=== PATIENT | female | born 1990 | race Caucasian/White ===

== ENCOUNTER 2024-03-05 12:56 | Emergency (ER) | payer OTHER ==
[2024-03-05 13:27] VITALS: TEMP 98.9
[2024-03-05] MEDS ORDERED: Zofran 4 MG/2 ML VIAL ONE (13:40)
[2024-03-05 13:41] LABS: Absolute Neutrophil Ct (ANC) 2.72 x10^3/uL (1.56-6.13); BASOPHIL % 0.6 % (0.1-1.2); Basophil (Absolute #) 0.03 x10^3/uL (0.01-0.08); Eosinophil % 0.8 % (0.7-5.8); Eosinophil (Absolute #) 0.04 x10^3/uL (0.04-0.36); Hematocrit 36.5 % (34.1-44.9); Hemoglobin 11.6 g/dL (11.2-15.7); IMMATURE GRAN # 0.01 x10^3u/L (0.001-0.031); IMMATURE GRAN % 0.2 % (0.001-0.429); Lymphocyte (Absolute #) 1.63 x10^3/uL (1.18-3.74); Lymphocytes % 34.1 % (19.3-51.7); Mean Cell Volume 90.8 fL (79.4-94.8); Mean Corpuscular Hemoglobin 28.9 pg (25.6-32.2); Mean Corpuscular Hgb Concent. 31.8 g/dL (32.2-35.5); Mean Platelet Volume 10.1 fL (9.4-12.3); Monocyte (Absolute #) 0.35 x10^3/uL (0.24-0.86); Monocytes % 7.3 % (4.7-12.5); Platelet Count 292 x10^3/uL (182-369); Red Blood Count 4.02 x10^6/uL (3.93-5.22); Red Cell Distribution Width 13.3 % (11.7-14.4); White Blood Count 4.8 x10^3/uL (3.98-10.04)
[2024-03-05] MEDS ORDERED: Sodium Chloride 0.9% 1000 ML 1,000 ML ONE (13:41)
[2024-03-05] MEDS ORDERED: TORAdol 30 mg Injection ONE (13:41)
[2024-03-05] MEDS: Sodium Chloride 0.9% 1000 ML 1,000 ML IV STA (13:43)
--- NOTE | 2024-03-05 13:43 | ERPHSYRPT ---
- History of Present Illness Time Seen by Provider: 03/05/24 13:25 Source: patient Exam Limitations: no limitations Patient Subjective Stated Complaint: Pt c/o of lower abdominal pain for the past 2 days Triage Nursing Assessment: Pt brought self to the ER, vitals wnl, rates pain as 10/10, pulses normal, skin n/w/d, having spasms when she urinates and when she has a bowel movement, states that it gets so tight that it is like a charley horse, pt had a UTI last month, no difficulty breathing, walked into the ER with a stable gait, doesn't appear to be in any distress Physician History: Patient here with lower abdominal pain. Patient rates as 10 out of 10. States that having bladder spasm when she urinates. Also, hurts when she tries to have a bowel movement. She has tried Gas-X, Protonix, Tylenol at home. No falls or trauma. States it feels like a tight charley horse. She states that she was treated for a UTI last month. No difficulty breathing, walking to the emergency department, does not appear to be in any acute distress, nontoxic as I walk into the room. Patient states that she does have a history of bladder prolapse, rectal colitis. Allergies/Adverse Reactions: No Known Drug Allergies Allergy (Verified 03/05/24 13:27) Home Medications: Omeprazole 40 mg PO DAILY 03/05/24 [History] Hx Tetanus, Diphtheria Vaccination/Date Given: Yes (unk) Hx Influenza Vaccination/Date Given: No Hx Pneumococcal Vaccination/Date Given: No Travel Risk - International Travel Have you traveled outside of the country in past 3 weeks: No - Emerging Infectious Disease Are you exhibiting symptoms associated with any current EIDs: Yes Symptoms: Abdominal Pain - Past Medical History Pertinent Past Medical History: No - Past Surgical History Past Surgical History: Yes Female Surgical History: Other Other Surgical History: 2 d&c, colonoscopy - Female History Hx Last Menstrual Period: 07/27/12 Hx Now: No - Social History Smoking Status: Former smoker How long have you smoked: 10 yrs Exposure to second hand smoke: No Drug Use: none Patient Lives Alone: No - Social Determinants of Health Will the patient participate in the screening: Yes Do you worry about a steady place to live?: No Do you have any problems with any of the following?: No known problems In the past 12 months,have you had to go without utilities?: No Transportation Issues: No Has anyone in your support network made you feel unsafe?: No Have you or anyone in your house had to go without enough: No - Nursing Vital Signs Nursing Vital Signs: Initial Vital Signs Temperature 98.9 F 03/05/24 13:18 Pulse Rate 67 03/05/24 13:18 Respiratory Rate 13 03/05/24 13:18 Blood Pressure 115/55 03/05/24 13:18 O2 Sat by Pulse Oximetry 100 03/05/24 13:18 Pain Scale Pain Intensity 10 - Physical Exam SpO2 Interpretation: normal SpO2: 100 Comments: 03/05/24 13:50 Review of Systems Constitutional: Negative for fever. HENT: Negative for congestion. Respiratory: Negative for shortness of breath. Cardiovascular: Negative for chest pain. Gastrointestinal: Lower abdominal pain Genitourinary: Negative for dysuria. Musculoskeletal: Negative for back pain. Skin: Negative for rash. Neurological: Negative for headaches. Psychiatric/Behavioral: Negative for behavioral problems. All other systems reviewed and are negative. Physical Exam Vitals signs and nursing note reviewed. Constitutional: Appearance: Patient is well-developed. HENT: Head: Normocephalic and atraumatic. Eyes: Conjunctiva/sclera: Conjunctivae normal. Neck: Musculoskeletal: Normal range of motion. Trachea: No tracheal deviation. Cardiovascular: Rate and Rhythm: Normal rate. Pulmonary: Effort: Pulmonary effort is normal. No respiratory distress. Abdominal: Palpations: Abdomen is soft. Lower abdominal tenderness to palpation. Midline. No right lower quadrant pain. Specifically no rebound or guarding. Musculoskeletal: General: No deformity. Skin: General: Skin is warm and dry. Neurological/ Psychiatric: Mental Status: Mental status, behavior, interaction with environment is appropriate for patient's age and condition - Course Nursing assessment & vital signs reviewed: Yes Ordered Tests: Active Orders 24 hr Category Date Time Status IV Insertion STAT Care 03/05/24 13:35 Active ABDOMEN AND PELVIS W CONTRAST [CT] Stat Exams 03/05/24 13:36 Completed PELVIS TRANS VAGINAL [US] Stat Exams 03/05/24 16:14 Completed AMYLASE Stat Lab 03/05/24 13:30 Completed CBC W DIFF Stat Lab 03/05/24 13:30 Completed CMP Stat Lab 03/05/24 13:30 Completed HCG QUALITATIVE, SERUM Stat Lab 03/05/24 13:30 Completed LIPASE Stat Lab 03/05/24 13:30 Completed Lactic Acid Stat Lab 03/05/24 13:44 Completed UA W/RFX UR CULTURE Stat Lab 03/05/24 13:38 Completed Medication Summary Discontinued Medications Generic Name Dose Route Start Last Admin Trade Name Ashishq PRN Reason Stop Dose Admin Sodium Chloride 1,000 mls @ 999 mls/hr 03/05/24 13:35 03/05/24 14:54 Sodium Chloride 0.9% 1000 Ml IV 03/05/24 14:35 Infused .Q1H1M STA Infusion Sodium Chloride Confirm 03/05/24 13:41 Sodium Chloride 0.9% 1000 Ml Administered 03/05/24 13:42 Dose 1,000 mls @ ud .ROUTE .STK-MED ONE Ketorolac Tromethamine 30 mg 03/05/24 13:35 03/05/24 13:45 Ketorolac Tromethamine 30 Mg/Ml Inj IV 03/05/24 13:36 30 mg STAT ONE Administration Ketorolac Tromethamine Confirm 03/05/24 13:41 Ketorolac Tromethamine 30 Mg/Ml Inj Administered 03/05/24 13:42 Dose 30 mg .ROUTE .STK-MED ONE Ondansetron HCl 4 mg 03/05/24 13:35 03/05/24 13:45 Ondansetron Hcl 4 Mg/2 Ml Vial IV 03/05/24 13:36 4 mg STAT ONE Administration Ondansetron HCl Confirm 03/05/24 13:40 Ondansetron Hcl 4 Mg/2 Ml Vial Administered 03/05/24 13:41 Dose 4 mg .ROUTE .STK-MED ONE Lab/Rad Data: Laboratory Result Diagrams 03/05/24 13:30 03/05/24 13:30 Laboratory Results 03/05/24 03/05/24 03/05/24 Range/Units 13:44 13:38 13:30 WBC (3.98-10.04) x10^3/uL RBC (3.93-5.22) x10^6/uL Hgb (11.2-15.7) g/dL Hct (34.1-44.9) % MCV (79.4-94.8) fL MCH (25.6-32.2) pg MCHC (32.2-35.5) g/dL RDW (11.7-14.4) % Plt Count (182-369) x10^3/uL MPV (9.4-12.3) fL Gran % (34.0-71.1) % Immature Gran % (Auto) (0.001-0.429) % Nucleat RBC Rel Count (0.00-0.2) % Eos # (Auto) (0.04-0.36) x10^3/uL Immature Gran # (Auto) (0.001-0.031) x10^3u/L Absolute Lymphs (auto) (1.18-3.74) x10^3/uL Absolute Monos (auto) (0.24-0.86) x10^3/uL Absolute Nucleated RBC (0.00-0.012) x10^3u/L Lymphocytes % (19.3-51.7) % Monocytes % (4.7-12.5) % Eosinophils % (0.7-5.8) % Basophils % (0.1-1.2) % Absolute Granulocytes (1.56-6.13) x10^3/uL Basophils # (0.01-0.08) x10^3/uL Sodium (135-145) mmol/L Potassium (3.5-5.1) mmol/L Chloride (98-107) mmol/L Carbon Dioxide (22-30) mmol/L Anion Gap (5-15) MEQ/L BUN (7-17) mg/dL Creatinine (0.52-1.04) mg/dL Estimated GFR ML/MIN Glucose (74-106) mg/dL Lactic Acid 0.7 (0.4-2.0) Calcium (8.4-10.2) mg/dL Total Bilirubin (0.2-1.3) mg/dL AST (14-36) U/L ALT (0-35) U/L Alkaline Phosphatase (38-126) U/L Serum Total Protein (6.3-8.2) g/dL Albumin (3.5-5.0) g/dL Amylase (30-110) U/L Lipase (23-300) U/L Serum HCG, Qual NEGATIVE (NEGATIVE) Urine Color Yellow (Yellow) Urine Appearance Clear (Clear) Urine pH 8.5 A (4.6-8.0) Ur Specific [place] 1.015 (1.005-1.030) Urine Protein Negative (Negative) Urine Glucose (UA) Negative (Negative) mg/dL Urine Ketones Negative (Negative) Urine Blood Negative (Negative) Urine Nitrite Negative (Negative) Urine Bilirubin Negative (Negative) Urine Urobilinogen 0.2 (0.2) mg/dL Ur Leukocyte Esterase Negative (Negative) U Hyaline Cast (Auto) NONE SEEN (0-2) /LPF Urine Microscopic RBC 0-2 (0-5) /HPF Urine Microscopic WBC 0-2 (0-5) /HPF Ur Epithelial Cells None Seen (None Seen) /HPF Urine Bacteria None Seen (None Seen) /HPF Urine Culture Reflexed NO (NO) 03/05/24 03/05/24 Range/Units 13:30 13:30 WBC 4.8 (3.98-10.04) x10^3/uL RBC 4.02 (3.93-5.22) x10^6/uL Hgb 11.6 (11.2-15.7) g/dL Hct 36.5 (34.1-44.9) % MCV 90.8 (79.4-94.8) fL MCH 28.9 (25.6-32.2) pg MCHC 31.8 L (32.2-35.5) g/dL RDW 13.3 (11.7-14.4) % Plt Count 292 (182-369) x10^3/uL MPV 10.1 (9.4-12.3) fL Gran % 57.0 (34.0-71.1) % Immature Gran % (Auto) 0.2 (0.001-0.429) % Nucleat RBC Rel Count 0.0 (0.00-0.2) % Eos # (Auto) 0.04 (0.04-0.36) x10^3/uL Immature Gran # (Auto) 0.01 (0.001-0.031) x10^3u/L Absolute Lymphs (auto) 1.63 (1.18-3.74) x10^3/uL Absolute Monos (auto) 0.35 (0.24-0.86) x10^3/uL Absolute Nucleated RBC 0.00 (0.00-0.012) x10^3u/L Lymphocytes % 34.1 (19.3-51.7) % Monocytes % 7.3 (4.7-12.5) % Eosinophils % 0.8 (0.7-5.8) % Basophils % 0.6 (0.1-1.2) % Absolute Granulocytes 2.72 (1.56-6.13) x10^3/uL Basophils # 0.03 (0.01-0.08) x10^3/uL Sodium 137 (135-145) mmol/L Potassium 4.0 (3.5-5.1) mmol/L Chloride 105 (98-107) mmol/L Carbon Dioxide 24 (22-30) mmol/L Anion Gap 11.9 (5-15) MEQ/L BUN 12 (7-17) mg/dL Creatinine 0.77 (0.52-1.04) mg/dL Estimated GFR 103.7 ML/MIN Glucose 96 (74-106) mg/dL Lactic Acid (0.4-2.0) Calcium 9.3 (8.4-10.2) mg/dL Total Bilirubin 0.50 (0.2-1.3) mg/dL AST 22 (14-36) U/L ALT 17 (0-35) U/L Alkaline Phosphatase 98 (38-126) U/L Serum Total Protein 8.6 H (6.3-8.2) g/dL Albumin 4.5 (3.5-5.0) g/dL Amylase 85 (30-110) U/L Lipase 68 (23-300) U/L Serum HCG, Qual (NEGATIVE) Urine Color (Yellow) Urine Appearance (Clear) Urine pH (4.6-8.0) Ur Specific [place] (1.005-1.030) Urine Protein (Negative) Urine Glucose (UA) (Negative) mg/dL Urine Ketones (Negative) Urine Blood (Negative) Urine Nitrite (Negative) Urine Bilirubin (Negative) Urine Urobilinogen (0.2) mg/dL Ur Leukocyte Esterase (Negative) U Hyaline Cast (Auto) (0-2) /LPF Urine Microscopic RBC (0-5) /HPF Urine Microscopic WBC (0-5) /HPF Ur Epithelial Cells (None Seen) /HPF Urine Bacteria (None Seen) /HPF Urine Culture Reflexed (NO) - Progress Progress: improved Progress Note: 03/05/24 13:50 Differential diagnosis includes kidney stone, compression fracture, infection, UTI, triple AAA - basic labs including: CBC, lipase, CMP, UA, UPT - insert IV for symptom management - consider imaging: CT ab/pelvis or U/S 03/05/24 17:37 CT scan: Impression: 1. New 2.2 cm right ovary cyst better evaluated with pelvic sonogram if clinically warranted. 2. Remaining CT abdomen/pelvis with contrast exam continues to be normal. CT scan as above, no other obvious signs of infection, screen negative. No signs of a UTI. 03/05/24 17:[address] findings with some continued minor pain, did obtain a ultrasound. Ultrasound: Impression: 1. New 2 dominant right ovary cysts as detailed. Smaller cyst possibly hemorrhagic/viscous. Consider follow-up sonogram following at least 2 menstrual cycles. 2. New small cul-de-sac fluid presumed from rupture/leaking cyst. 3. Prominent endometrial stripe with tiny fundal fluid. Correlate with patient's menstrual cycle. 4. Again multiple tiny nabothian cysts. Ultrasound as above, I did go over all these results with the patient in detail. Most likely hemorrhagic cyst in clinical setting and history. Given all of this we will treat as hemorrhagic cyst. Plan for discharge home at this point in time. Patient will follow-up closely with PCP, repeat ultrasound in 2 menstrual cycles as above. They will return here sooner for any new or changing symptoms. Counseled pt/family regarding: lab results, diagnosis, need for follow-up - Departure Departure Disposition: Home Clinical Impression: Ruptured cyst of ovary Condition: Stable Critical Care Time: No Referrals: KIMBERLEY CARMONA PA [Primary Care Provider] - Follow up/PCP as directed Instructions: Abdominal pain Additional Instructions: Follow-up ultrasound in 2 menstrual cycles to make sure that cysts are resolved. You may follow-up with your PCP or [facility]. Return here sooner for new or changing symptoms. Return here for worsening, changing abdominal pain, in creased bleeding, going through 1 pad an hour. Prescriptions: Ondansetron ODT 4 MG [Zofran Odt 4 mg] 4 mg PO Q6H PRN PRN #10 tablet PRN Reason: Vomiting Naproxen 500 mg [Naprosyn 500 MG] 500 mg PO BID #10 tablet
[2024-03-05] MEDS: TORAdol 30 mg Injection IV ONE (13:45)
[2024-03-05] MEDS: Zofran 4 MG/2 ML VIAL IV ONE (13:45)
[2024-03-05 13:49] LABS: Appearance Clear (Clear); Bacteria None Seen /HPF (None Seen); Bilirubin Negative (Negative); Blood Negative (Negative); Epithelial Cells None Seen /HPF (None Seen); Glucose, Urine Negative (Negative); Hyaline Casts NONE SEEN /LPF (0-2); Ketones Negative (Negative); Leukocyte Esterase Negative (Negative); Nitrite Negative (Negative); Ph 8.5 (4.6-8.0); Protein,Urine Dip Negative (Negative); RBC 0-2 /HPF (0-5); Specific Gravity 1.015 (1.005-1.030); Urobilinogen 0.2 mg/dL (0.2); WBC 0-2 /HPF (0-5)
[2024-03-05 13:54] LABS: HCG SERUM TEST NEGATIVE (NEGATIVE)
[2024-03-05 14:00] LABS: ALBUMIN 4.5 g/dL (3.5-5.0); ANION GAP 11.9 MEQ/L (5-15); BILIRUBIN,TOTAL 0.5 mg/dL (0.2-1.3); Calcium 9.3 mg/dL (8.4-10.2); Creatinine 1 0.77 mg/dL (0.52-1.04); EST GLOMERULAR FILTRATION RATE 103.7 ML/MIN; Total Protein 8.6 g/dL (6.3-8.2)
[2024-03-05 14:28] LABS: ADD URINE CULTURE? NO (NO)
--- NOTE | 2024-03-05 15:26 | XRAY ---
Indication: Lower abdominal pain. Multiple contiguous axial images obtained through the abdomen and pelvis using 80 cc Isovue 370 contrast. Comparison: May 11, 2023 Lung bases remain clear. Heart not enlarged. Noncontrasted stomach and bowel loops nonobstructed. Normal appendix. Right ovary demonstrates new 2.2 cm cyst. No free fluid/air. Remaining liver, gallbladder, pancreas, spleen, adrenal glands, kidneys, ureters, bladder, uterus, and aorta are unremarkable. No pathologic retroperitoneal lymphadenopathy. Osseous structures intact. No ventral or inguinal hernias. Impression: 1. New 2.2 cm right ovary cyst better evaluated with pelvic sonogram if clinically warranted. 2. Remaining CT abdomen/pelvis with contrast exam continues to be normal.
[2024-03-05 17:04] VITALS: PULSE 85; RESP 13
--- NOTE | 2024-03-05 17:17 | XRAY ---
Indication: Pain. Ovary cyst. Two-dimensional transvaginal pelvic sonogram performed. Comparison: November 21, 2021 Uterus again anteverted measuring 9.7 x 5.3 x 5.8 cm. Again tiny lower uterine segment/cervical nabothian cysts increased in number, largest measuring 5 mm. Endometrial stripe measures 8.3 mm with tiny 5 mm fundal fluid collection. Right ovary measures 5.0 x 4.1 x 4.0 cm and left measures 3.9 x 2.4 x 3.2 cm. Normal perfusion bilaterally. Right ovary demonstrates at least 2 cysts, measuring 2.3 x 1.2 x 1.7 cm and 2.0 x 1.2 x 1.4 cm. Smaller cyst demonstrates low-level internal echoes, possibly hemorrhagic/viscous. Left ovary sonographically unremarkable. Small cul-de-sac fluid presumed physiologic from ruptured/leaking cyst. Impression: 1. New 2 dominant right ovary cysts as detailed. Smaller cyst possibly hemorrhagic/viscous. Consider follow-up sonogram following at least 2 menstrual cycles. 2. New small cul-de-sac fluid presumed from rupture/leaking cyst. 3. Prominent endometrial stripe with tiny fundal fluid. Correlate with patient's menstrual cycle. 4. Again multiple tiny nabothian cysts.
[2024-03-05 17:36] VITALS: O2SAT 100
[2024-03-05 17:43] VITALS: BP 115/71
== END 2024-03-05 17:48 | disposition home or self-care (01) ==
LOC: ED 12:56
DX: N83.201 Unspecified ovarian cyst, right side (principal); R10.30 Lower abdominal pain, unspecified
CPT/HCPCS: 36000; 36415; 74177; 76830; 80053; 81001; 82150; 83605; 83690; 84703; 85025; 96360; 96374; 96375; 99284; J1885; J2405